=== PATIENT | female | born 2000 | race Caucasian/White ===

== ENCOUNTER 2021-01-04 14:04 | Outpatient (REF) | payer MEDICAID, SELFPAY ==
[2021-01-04 16:10] LABS: COVID-19 Test Negative (Negative)
== END 2021-01-04 14:05 | disposition home or self-care (01) ==
LOC: HO.LAB 14:04
PROVIDERS: Visit Provider Internal Medicine
DX: Z20.822 Contact with and (suspected) exposure to COVID-19 (principal)
CPT/HCPCS: 36415; 87635; C9803

== ENCOUNTER 2021-03-31 10:40 | Emergency (ER) | payer OTHER, MEDICAID, SELFPAY ==
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
[2021-03-31 10:50] VITALS: BP 132/77; PULSE 92; RESP 16; TEMP 35.9; O2SAT 97; BMI 36.8
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
== END 2021-03-31 12:42 | disposition home or self-care (01) ==
PROVIDERS: Emergency Provider Emergency Medicine
DX: S13.4XXA Sprain of ligaments of cervical spine, initial encounter (principal); S06.0X0A Concussion without loss of consciousness, initial encounter; V43.52XA Car driver injured in collision with other type car in traffic accident, initial encounter; Y93.9 Activity, unspecified; Y92.410 Unspecified street and highway as the place of occurrence of the external cause; Y99.9 Unspecified external cause status
CPT/HCPCS: 70450; 72125; 99283; 99284

== ENCOUNTER 2021-09-01 22:51 | Emergency (ER) | payer MEDICAID, SELFPAY ==
[2021-09-01 22:58] VITALS: BP 118/78; PULSE 105; RESP 18; TEMP 36.8; O2SAT 97; BMI 42.0
--- NOTE | 2021-09-01 23:18 | ED.HA ---
HPI - Headache General Chief Complaint: Headache <Vanna Moon NP - Last Filed: 09/01/21 23:37> Stated Complaint: migraines <Vanna Moon NP - Last Filed: 09/01/21 23:37> Source: patient <Vanna Moon NP - Last Filed: 09/01/21 23:37> Mode of arrival: ambulatory <Vanna Moon NP - Last Filed: 09/01/21 23:37> Limitations: no limitations <Vanna Moon NP - Last Filed: 09/01/21 23:37> History of Present Illness HPI Narrative: Patient presents with a headache after sneezing. Has a history of migraines. <Vanna Moon NP - Last Filed: 09/01/21 23:37> MD elicited complaint: headache <Vanna Moon NP - Last Filed: 09/01/21 23:37> Onset (ago): hour(s) <Vanna Moon NP - Last Filed: 09/01/21 23:37> Onset description: gradually <Vanna Moon NP - Last Filed: 09/01/21 23:37> Severity: mild <Vanna Moon NP - Last Filed: 09/01/21 23:37> Pain scale (0-10): 3 <Vanan Moon NP - Last Filed: 09/01/21 23:37> Quality & Timing: aching <Vanna Moon NP - Last Filed: 09/01/21 23:37> Exacerbating factors: other (Sneezing) <Vanna Moon NP - Last Filed: 09/01/21 23:37> Relieving factors: NSAIDs <Vanna Moon NP - Last Filed: 09/01/21 23:37> Associated symptoms: none <Vanna Moon NP - Last Filed: 09/01/21 23:37> Treatments prior to arrival: ibuprofen <Vanna Moon NP - Last Filed: 09/01/21 23:37> Related Data Home Medications: Previous Rx's Medication Instructions Recorded acetaminophen 500 mg tablet 1,000 mg PO QID PRN #14 tab 03/31/21 (Tylenol Extra Strength) cyclobenzaprine 10 mg tablet 10 mg PO Q8H #10 tab 03/31/21 [id number]-[id number]-ixniangq 1 cap PO Q8H PRN #14 cap 09/01/21 50 mg-300 mg-40 mg capsule (Fioricet) <Vanna Moon NP - Last Filed: 09/01/21 23:37> Allergies/Adverse Reactions: Allergies Allergy/AdvReac Type Severity Reaction Status Date / Time No Known Allergies Allergy Verified 09/01/21 22:58 <Vanna Moon NP - Last Filed: 09/01/21 23:37> Review of Systems Review of Systems: Constitutional: No Fever, No Chills ENT/Mouth: No Ear Pain, No Hoarseness, No sore throat Eyes: No Eye Pain, No Swelling, No Redness, No Foreign Body Cardiovascular: No Chest Pain, No SOB Respiratory: No Cough, No Dyspnea Gastrointestinal: No Nausea, No Vomiting, No Diarrhea, No abdominal Pain Genitourinary: No Dysuria, No Hematuria Musculoskeletal: No joint pain, No Myalgias, No Joint Swelling Skin: No Skin lacerations, No rash Neuro: No Weakness, No Numbness, No Paresthesias, No Loss of Consciousness, No Dizziness, positive Headache Psych: No Anxiety/Panic, No Depression Heme/Lymph: no easy bruising, no Lymphadenopathy Endocrine: No Polyuria, No Polydipsia <Vanna Moon NP - Last Filed: 09/01/21 23:37> Yes all other systems are reviewed and are negative <Vanna Moon NP - Last Filed: 09/01/21 23:37> [facility] Past Medical History Attestation statement: The following information was validated with the patient. <Vanna Moon NP - Last Filed: 09/01/21 23:37> Source: old records reviewed <Vanna Moon NP - Last Filed: 09/01/21 23:37> Medical History: Medical History Headache <Vanna Moon NP - Last Filed: 09/01/21 23:37> Social History Social History: Social History Advance Directives: No Advance Directives Information Provided: No Patient : No <Vanna Moon ELECTRICIAN LOCOMOTIVE - Last Filed: 09/01/21 23:37> Physical Exam Vital Signs: Vital Signs: Last Vital Signs Temp 98.3 F 09/01/21 22:58 Pulse 105 H 09/01/21 22:58 Resp 18 09/01/21 22:58 BP 118/78 09/01/21 22:58 Pulse Ox 97 09/01/21 22:58 BMI result Body Mass Index 42.0 <Vanna Moon ELECTRICIAN LOC[employer] - Last Filed: 09/01/21 23:37> Vital Signs: Last Vital Signs Temp 98.3 F 09/01/21 22:58 Pulse 105 H 09/01/21 22:58 Resp 18 09/01/21 22:58 BP 118/78 09/01/21 22:58 Pulse Ox 97 09/01/21 22:58 BMI result Body Mass Index 42.0 <Kevin Spencer MD - Last Filed: 09/02/21 00:17> Appearance: Alert. Oriented X3. No acute distress. Head: Normal external exam. Normocephalic. Atraumatic. No Hicks signs noted. No raccoon eyes noted Eyes: PERRLA. EOMI. Conjunctiva and sclera normal. Eyelids normal. ENT: TM's Normal. Pharynx normal. Uvula midline. Moist mucous membranes. No trismus noted. No drooling noted. No muffled voice noted. Neck: Normal inspection. Neck supple. No adenopathy. No meningeal signs. No neck mass noted. No nuchal rigidity. CVS: Normal heart rate and rhythm. Heart sound normal. No murmurs noted. Pulses equal to all extremities. Respiratory: No respiratory distress. Painless inspiration. Breath sounds normal. No wheezes/rales/rhonchi noted. Chest nontender. No accessory muscle usage noted or decreased air movement noted. Abdomen: Soft and nontender. Bowel sounds normal in all 4 quadrants. No distention noted. No organomegaly noted. No visible injury noted. Back: No CVA tenderness. Full range of motion noted. Skin: Skin warm and dry. Normal skin color. Normal skin turgor. No rashes/lesions/lacerations noted. Extremities: No lower extremity edema. Extremities exhibit normal range of motion. Extremities nontender. Neuro: cranial nerves 2-12 intact, no focal neural deficits, strength 5/5 to all extremities, No motor deficit. No sensory deficit. <Vanna Moon NP - Last Filed: 09/01/21 23:37> Course Course Course Narrative: 20-year-old female presents with headache after sneezing. States that her headache is almost gone since taking ibuprofen. She does have a history of migraines, and does not have anymore Fioricet. Patient is afebrile, appears nontoxic, negative Romberg, gait well-balanced well coordinated. Plan of care is to refill her Fioricet primary care physician. CT scan from 03/31/2021 reviewed, negative for acute findings at that time. Patient is neurovascularly intact, no need to repeat CT scan at this time. Patient verbalized understanding of and agrees to plan of care discharge home. <Vanna Moon NP - Last Filed: 09/01/21 23:37> MDM - Headache Differential Diagnosis Differential diagnosis: Likely migraine and headache <Vanna Moon NP - Last Filed: 09/01/21 23:37> Medical Records Attestation: I reviewed the patient's medical records. <Vanna Moon NP - Last Filed: 09/01/21 23:37> Discharge Plan Discharge Clinical Impression: Headache, Migraine <Vanna Moon NP - Last Filed: 09/01/21 23:37> Patient Disposition: Home, Self-Care <Vanna Moon NP - Last Filed: 09/01/21 23:37> Instructions: Acute Headache (ED), Cold Symptoms (ED) <Vanna Moon NP - Last Filed: 09/01/21 23:37> Additional Instructions: You were evaluated for headache from sneezing. I gave you a prescription for Fioricet. Please consider following up with ENT if symptoms persist. Please follow-up with your primary care physician. Thank you for choosing this emergency department for evaluation. Please follow-up with primary care physician as needed. Return to the emergency department for any new, concerning, or worsening symptoms. <DARLEEN Lubin Last Filed: 09/01/21 23:37> Prescriptions: New [id number]-msblikmukixcx-yifo [Fioricet] 50-300-40 mg capsule 1 cap PO Q8H PRN (Reason: Migraine) Qty: 14 RF: 0 No Action cyclobenzaprine 10 mg tablet 10 mg PO Q8H Qty: 10 RF: 0 acetaminophen [Tylenol Extra Strength] 500 mg tablet 1,000 mg PO QID PRN (Reason: fever or pain) Qty: 14 RF: 0 <Vanna Moon NP - Last Filed: 09/01/21 23:37> Interventions: ED Discharge Assessment Last Done: 09/01/21 23:33 <Vanna Moon NP - Last Filed: 09/01/21 23:37> Discharge Date/Time: 09/01/21 23:34 <Vanna Moon NP - Last Filed: 09/01/21 23:37>
== END 2021-09-01 23:34 | disposition home or self-care (01) ==
LOC: HO.ED 23:29
PROVIDERS: Emergency Provider Internal Medicine
DX: G43.009 Migraine without aura, not intractable, without status migrainosus (principal)
CPT/HCPCS: 99283

== ENCOUNTER 2022-08-22 15:23 | Emergency (ER) | payer MEDICAID, SELFPAY ==
--- NOTE | ~2022-08-22 | US_ITS ---
EXAMINATION: US OBSTETRICAL ULTRASOUND CLINICAL INFORMATION: Pain with question of ovarian torsion, positive urine test COMPARISON: None. LMP: 07/19/2022. Gestational age by maternal dates is 4 weeks 6 days. Estimated date of delivery by maternal dates is 04/25/2023. TECHNIQUE: Transabdominal ultrasound was performed. The patient declined endovaginal scanning. FINDINGS: Normal anteverted uterus is present. A gestational sac is not seen within the endometrial canal which appears normal. There is a small area adjacent to the endometrium that measures 7 x 8 x 6 mm of questionable significance. Both ovaries appear unremarkable with normal flow. The right measures 3.4 x 3.4 x 2.9 cm and contains a possible corpus luteum cyst measuring 2.0 cm. Left ovary measures 2.3 x 2.2 x 1.6 cm and appears normal. No free fluid is present in the cul-de-sac. No maternal pelvic ascites. US/US OB <= 14 weeks fetus IMPRESSION: A gestational sac in the endometrial canal is not seen. Tiny hypodensity seen adjacent to the endometrium as described above. Recommend follow-up ultrasound in one week and correlation with hCG levels.
--- NOTE | ~2022-08-22 | US_ITS ---
EXAMINATION: US OBSTETRICAL ULTRASOUND CLINICAL INFORMATION: Pain with question of ovarian torsion, positive urine test COMPARISON: None. LMP: 07/19/2022. Gestational age by maternal dates is 4 weeks 6 days. Estimated date of delivery by maternal dates is 04/25/2023. TECHNIQUE: Transabdominal ultrasound was performed. The patient declined endovaginal scanning. FINDINGS: Normal anteverted uterus is present. A gestational sac is not seen within the endometrial canal which appears normal. There is a small area adjacent to the endometrium that measures 7 x 8 x 6 mm of questionable significance. Both ovaries appear unremarkable with normal flow. The right measures 3.4 x 3.4 x 2.9 cm and contains a possible corpus luteum cyst measuring 2.0 cm. Left ovary measures 2.3 x 2.2 x 1.6 cm and appears normal. No free fluid is present in the cul-de-sac. No maternal pelvic ascites. US/US pelvic ovarian doppler IMPRESSION: A gestational sac in the endometrial canal is not seen. Tiny hypodensity seen adjacent to the endometrium as described above. Recommend follow-up ultrasound in one week and correlation with hCG levels.
[2022-08-22 15:57] VITALS: BP 105/61; PULSE 96; RESP 16; TEMP 36.4; O2SAT 96; BMI 40.0
--- NOTE | 2022-08-22 15:57 | ED_ITS ---
HPI - General Adult General Chief complaint: Abdominal Pain <TORSTEN Mcclendon - Last Filed: 08/22/22 16:00> Stated complaint: , having abdominal pain <TORSTEN Mcclendon - Last Filed: 08/22/22 16:00> Time Seen by Provider: 08/23/22 00:01 <TORSTEN Mcclendon - Last Filed: 08/22/22 16:00> Source: patient <Roz Chawla MD - Last Filed: 08/23/22 00:49> Mode of arrival: ambulatory <Roz Chawla MD - Last Filed: 08/23/22 00:49> Limitations: no limitations <Roz Chawla MD - Last Filed: 08/23/22 00:49> History of Present Illness HPI narrative: Patient comes to the emergency room complaining of 1 day of vaginal pinkish discharge, suprapubic discomfort. Patient is a at approximately 8 weeks and 3 days of gestational age. Patient's last menstrual period is 06/25/2022. Patient had a home test which was positive. Patient denies any nausea vomiting or diarrhea. 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 <Roz Chawla MD - Last Filed: 08/23/22 00:49> Related Data Home medications: Previous Rx's Medication Instructions Recorded acetaminophen 500 mg tablet 1,000 mg PO QID PRN fever or pain 03/31/21 (Tylenol Extra Strength) #14 tabs cyclobenzaprine 10 mg tablet 10 mg PO Q8H Muscle spasm #10 tabs 03/31/21 evyrxvnxcd-yfkpmtiequfll-rkyhxmkp 1 cap PO Q8H PRN Migraine #14 caps 09/01/21 50 mg-300 mg-40 mg capsule (Fioricet) <TORSTEN Mcclendon - Last Filed: 08/22/22 16:00> Allergies/adverse reactions: Allergies Allergy/AdvReac Type Severity Reaction Status Date / Time No Known Allergies Allergy Verified 08/22/22 16:02 <TORSTEN Mcclendon - Last Filed: 08/22/22 16:00> Review of Systems Review of Systems: Constitutional : No Weight loss, No Fever, No Chills, No Night Sweats, No Fatigue, No Malaise ENT/Mouth : No Hearing loss, No Ear Pain, No Nasal Congestion, No Sinus Pain, No Hoarseness, No sore throat, No Rhinorrhea, No Swallowing Difficulty Eyes: No Eye Pain, No Swelling, No Redness, No Foreign Body, No Discharge, No Vision Changes Cardiovascular : No Chest Pain, No SOB, No Dyspnea on Exertion, No Orthopnea, No Edema, No Palpitations Respiratory : No Cough, No Sputum, No Wheezing, No Smoke Exposure, No Dyspnea Gastrointestinal : No Nausea, No Vomiting, No Diarrhea, No Constipation, mild suprapubic intermittent cramping, No Hematochezia, No Melena Genitourinary : , complaining of vaginal pinkish/bloody discharge, No Dysuria, No Urinary Frequency, No Hematuria, No Urinary Incontinence, No Urgency, No Flank Pain, No Urinary Flow Changes, No Hesitancy Musculoskeletal : No joint pain, No Myalgias, No Joint Swelling Skin : No Skin Lesions, No rash Neuro : No Weakness, No Numbness, No Paresthesias, No Loss of Consciousness, No Dizziness, No Headache Psych : No Anxiety/Panic, No Depression, No SI/HI/AH/VH, No Social Issues, Heme/Lymph: No Bruising, No Bleeding,No Lymphadenopathy Endocrine : No Polyuria, No Polydipsia, No Temperature Intolerance <Roz Chawla MD - Last Filed: 08/23/22 00:49> [facility] [place] Past Medical History Medical History: Medical History Headache <TORSTEN Mcclendon - Last Filed: 08/22/22 16:00> Social History Social History: Social History Advance Directives: No Advance Directives Information Provided: Yes <TORSTEN Mcclendon - Last Filed: 08/22/22 16:00> Physical Exam ED Vital Signs: Vital Signs - 24 hr 08/22/22 15:57 08/22/22 21:18 Temperature 97.5 F Pulse Rate 96 85 Respiratory Rate 16 20 Blood Pressure 105/61 109/53 L Pulse Oximetry 96 99 Oxygen Delivery Method Room Air Room Air BMI result Body Mass Index 40.0 <TORSTEN Mcclendon - Last Filed: 08/22/22 16:00> Vital Signs - 24 hr 08/22/22 15:57 08/22/22 21:18 Temperature 97.5 F Pulse Rate 96 85 Respiratory Rate 16 20 Blood Pressure 105/61 109/53 L Pulse Oximetry 96 99 Oxygen Delivery Method Room Air Room Air BMI result Body Mass Index 40.0 <Roz Chawla MD - Last Filed: 08/23/22 00:49> Const Other: Appearance: Alert. Oriented X3. No acute distress. Eyes: Pupils equal, round and reactive to light. ENT: Pharynx normal. Neck: Normal inspection. Neck supple. No lymph nodes noted. No crepitus CVS: Normal heart rate and rhythm. Pulses normal. Normal S1 and S2 Respiratory: No respiratory distress. Breath sounds normal. No Wheezing. No rales Abdomen: Soft and nontender. No rigidity. No distention. : Normal appearing cervix, no blood present or brownish discharge Skin: Skin warm and dry. Normal skin color. Normal skin turgor. Extremities: No lower extremity edema. No Lacerations. No Rash Neuro: Oriented X 3. No motor deficit. No sensory deficit. Moving all extremities. No slurred speech. CN 2 through 12 grossly intact Psych: calm, cooperative, normal affect <Roz Chawla MD - Last Filed: 08/23/22 00:49> Course Course Course Narrative: Patient's ultrasound does not show gestational sac. Patient's hCG is 2727. It is possible that this may be an early miscarriage versus a very early . Patient will need repeat hCG and ultrasound in approximately 1 week. Patient's blood type is B-positive, RhoGAM not indicated. Patient was given a lab form to get redrawn beta hCG in 48 hours, patient instructed to follow-up with her primary care physician. In case she cannot be seen, patient was given the phone number of Dr. Malik <Roz Chawla MD - Last Filed: 08/23/22 00:49> Reevaluation(s) Reevaluation #1: 21 year old female LMP 06/25/2022 presents w/ 8/10 lower abdominal cramping, vaginal bleeding since this morning. Blood is a light red, without clots only present when she wipes. Found out she was recently not followed by OBGYN Sep 02 scheduled to see [facility]. Not taking vitamins. Denies headache, vision changes, dizziness, nausea, vomiting, chest pain, shortness of breath, changes in bowel habits. Natural PE benign Plan- us, basic labs. <TORSTEN Mcclendon - Last Filed: 08/22/22 16:00> Time: 16:00 <TORSTEN Mcclendon - Last Filed: 08/22/22 16:00> Medications Administered Discontinued Medications Generic Name Dose Route Start Last Admin Trade Name Freq PRN Reason Stop Dose Admin Acetaminophen 975 mg 08/23/22 00:08 08/23/22 00:26 Acetaminophen 325 Mg Tablet PO 08/23/22 00:09 975 mg ONCE ONE Administration <TORSTEN Mcclendon - Last Filed: 08/22/22 16:00> Medications Administered Discontinued Medications Generic Name Dose Route Start Last Admin Trade Name Freq PRN Reason Stop Dose Admin Acetaminophen 975 mg 08/23/22 00:08 08/23/22 00:26 Acetaminophen 325 Mg Tablet PO 08/23/22 00:09 975 mg ONCE ONE Administration <Roz Chawla MD - Last Filed: 08/23/22 00:49> Medical Decision Making Lab Data Result diagrams: : 08/22/22 21:24 08/22/22 21:24 <TORSTEN Mcclendon - Last Filed: 08/22/22 16:00> Labs: Lab Results 08/22/22 08/22/22 08/22/22 Range/Units 16:21 16:22 21:24 WBC 10.6 (4.8-10.8) X10*3/uL RBC 4.78 (4.20-5.50) X10*6/uL Hgb 13.9 (12.0-16.0) g/dl Hct 40.7 (37.0-47.0) % MCV 85.1 (80.0-98.0) fL MCH 29.1 (27.0-33.0) pg MCHC 34.2 (31.0-35.0) g/dl RDW 12.6 (11.0-16.0) % Plt Count 359 (160-400) X10*3/uL MPV 9.9 (9.4-12.3) fL Immature Gran % (Auto) 1.0 H (0.0-0.4) % Neut % (Auto) 69.7 (45-73) % Lymph % (Auto) 21.1 (20-40) % Wilkinson % (Auto) 6.4 (2-11) % Eos % (Auto) 1.3 (0-4) % Baso % (Auto) 0.5 (0-2) % Lymph # (Auto) 2.2 (1.2-4.9) X10*3/uL Wilkinson # (Auto) 0.7 (0.1-1.2) X10*3/uL Eos # (Auto) 0.1 (0.0-0.4) X10*3/uL Baso # (Auto) 0.1 (0.0-0.2) X10*3/uL Abs Immat Gran (auto) 0.11 H (0.00-0.03) X10*3/uL Absolute Neuts (auto) 7.4 (2.0-8.3) x10*3/uL Absolute Nucleated RBC 0.000 (0.0-0.012) X10*3/uL Nucleated RBC % (auto) 0.0 (0.0-0.2) /100WBC Sodium (135-145) mmol/L Potassium (3.3-5.1) mmol/L Chloride (96-108) mmol/L Carbon Dioxide (22-29) mmol/L Anion Gap (12-20) BUN (9-16) mg/dL Creatinine (0.5-1.4) mg/dL Estim Creat Clear Calc Estimated GFR Random Glucose (60-115) mg/dL Calcium (8.4-10.2) mg/dL Total Bilirubin (0.0-1.0) mg/dL AST (5-31) U/L ALT (0-31) U/L Alkaline Phosphatase (39-117) U/L Total Protein (6.5-8.0) g/dL Albumin (3.5-5.0) g/dL Beta HCG, Quant mIU/mL Urine Color Yellow Urine Appearance Clear Urine pH 5.5 (5.0-9.0) Ur Specific [place] >= 1.030 H (1.005-1.025) Urine Protein 100 (2+) H (Neg-Trace) mg/dL Urine Glucose (UA) Negative (Negative) mg/dL Urine Ketones Trace (Negative) mg/dL Urine Blood Negative (Negative) Urine Nitrite Negative (Negative) Ur Leukocyte Esterase Negative (Negative) Urine RBC 0-2 (0-2) /HPF Urine WBC 0-5 (0-5) /HPF Ur Squamous Epith Cells 3-5 (0-2) /HPF Urine Bacteria None Seen (None Seen) Hyaline Casts 0-2 (0-2) /LPF Urine Test POSITIVE H (NEGATIVE) Blood Type 08/22/22 08/22/22 08/22/22 Range/Units 21:24 21:24 21:24 WBC (4.8-10.8) X10*3/uL RBC (4.20-5.50) X10*6/uL Hgb (12.0-16.0) g/dl Hct (37.0-47.0) % MCV (80.0-98.0) fL MCH (27.0-33.0) pg MCHC (31.0-35.0) g/dl RDW (11.0-16.0) % Plt Count (160-400) X10*3/uL MPV (9.4-12.3) fL Immature Gran % (Auto) (0.0-0.4) % Neut % (Auto) (45-73) % Lymph % (Auto) (20-40) % Wilkinson % (Auto) (2-11) % Eos % (Auto) (0-4) % Baso % (Auto) (0-2) % Lymph # (Auto) (1.2-4.9) X10*3/uL Wilkinson # (Auto) (0.1-1.2) X10*3/uL Eos # (Auto) (0.0-0.4) X10*3/uL Baso # (Auto) (0.0-0.2) X10*3/uL Abs Immat Gran (auto) (0.00-0.03) X10*3/uL Absolute Neuts (auto) (2.0-8.3) x10*3/uL Absolute Nucleated RBC (0.0-0.012) X10*3/uL Nucleated RBC % (auto) (0.0-0.2) /100WBC Sodium 137 (135-145) mmol/L Potassium 4.0 (3.3-5.1) mmol/L Chloride 104 (96-108) mmol/L Carbon Dioxide 23 (22-29) mmol/L Anion Gap 14 (12-20) BUN 10 (9-16) mg/dL Creatinine 0.65 (0.5-1.4) mg/dL Estim Creat Clear Calc 157.8 Estimated GFR > 60 Random Glucose 92 (60-115) mg/dL Calcium 9.6 (8.4-10.2) mg/dL Total Bilirubin 0.3 (0.0-1.0) mg/dL AST 22 (5-31) U/L ALT 27 (0-31) U/L Alkaline Phosphatase 97 (39-117) U/L Total Protein 7.6 (6.5-8.0) g/dL Albumin 4.0 (3.5-5.0) g/dL Beta HCG, Quant 2727 mIU/mL Urine Color Urine Appearance Urine pH (5.0-9.0) Ur Specific [place] (1.005-1.025) Urine Protein (Neg-Trace) mg/dL Urine Glucose (UA) (Negative) mg/dL Urine Ketones (Negative) mg/dL Urine Blood (Negative) Urine Nitrite (Negative) Ur Leukocyte Esterase (Negative) Urine RBC (0-2) /HPF Urine WBC (0-5) /HPF Ur Squamous Epith Cells (0-2) /HPF Urine Bacteria (None Seen) Hyaline Casts (0-2) /LPF Urine Test (NEGATIVE) Blood Type B Positive <TORSTEN Mcclendon - Last Filed: 08/22/22 16:00> Lab Results 08/22/22 08/22/22 08/22/22 Range/Units 16:21 16:22 21:24 WBC 10.6 (4.8-10.8) X10*3/uL RBC 4.78 (4.20-5.50) X10*6/uL Hgb 13.9 (12.0-16.0) g/dl Hct 40.7 (37.0-47.0) % MCV 85.1 (80.0-98.0) fL MCH 29.1 (27.0-33.0) pg MCHC 34.2 (31.0-35.0) g/dl RDW 12.6 (11.0-16.0) % Plt Count 359 (160-400) X10*3/uL MPV 9.9 (9.4-12.3) fL Immature Gran % (Auto) 1.0 H (0.0-0.4) % Neut % (Auto) 69.7 (45-73) % Lymph % (Auto) 21.1 (20-40) % Wilkinson % (Auto) 6.4 (2-11) % Eos % (Auto) 1.3 (0-4) % Baso % (Auto) 0.5 (0-2) % Lymph # (Auto) 2.2 (1.2-4.9) X10*3/uL Wilkinson # (Auto) 0.7 (0.1-1.2) X10*3/uL Eos # (Auto) 0.1 (0.0-0.4) X10*3/uL Baso # (Auto) 0.1 (0.0-0.2) X10*3/uL Abs Immat Gran (auto) 0.11 H (0.00-0.03) X10*3/uL Absolute Neuts (auto) 7.4 (2.0-8.3) x10*3/uL Absolute Nucleated RBC 0.000 (0.0-0.012) X10*3/uL Nucleated RBC % (auto) 0.0 (0.0-0.2) /100WBC Sodium (135-145) mmol/L Potassium (3.3-5.1) mmol/L Chloride (96-108) mmol/L Carbon Dioxide (22-29) mmol/L Anion Gap (12-20) BUN (9-16) mg/dL Creatinine (0.5-1.4) mg/dL Estim Creat Clear Calc Estimated GFR Random Glucose (60-115) mg/dL Calcium (8.4-10.2) mg/dL Total Bilirubin (0.0-1.0) mg/dL AST (5-31) U/L ALT (0-31) U/L Alkaline Phosphatase (39-117) U/L Total Protein (6.5-8.0) g/dL Albumin (3.5-5.0) g/dL Beta HCG, Quant mIU/mL Urine Color Yellow Urine Appearance Clear Urine pH 5.5 (5.0-9.0) Ur Specific [place] >= 1.030 H (1.005-1.025) Urine Protein 100 (2+) H (Neg-Trace) mg/dL Urine Glucose (UA) Negative (Negative) mg/dL Urine Ketones Trace (Negative) mg/dL Urine Blood Negative (Negative) Urine Nitrite Negative (Negative) Ur Leukocyte Esterase Negative (Negative) Urine RBC 0-2 (0-2) /HPF Urine WBC 0-5 (0-5) /HPF Ur Squamous Epith Cells 3-5 (0-2) /HPF Urine Bacteria None Seen (None Seen) Hyaline Casts 0-2 (0-2) /LPF Urine Test POSITIVE H (NEGATIVE) Blood Type 08/22/22 08/22/22 08/22/22 Range/Units 21:24 21:24 21:24 WBC (4.8-10.8) X10*3/uL RBC (4.20-5.50) X10*6/uL Hgb (12.0-16.0) g/dl Hct (37.0-47.0) % MCV (80.0-98.0) fL MCH (27.0-33.0) pg MCHC (31.0-35.0) g/dl RDW (11.0-16.0) % Plt Count (160-400) X10*3/uL MPV (9.4-12.3) fL Immature Gran % (Auto) (0.0-0.4) % Neut % (Auto) (45-73) % Lymph % (Auto) (20-40) % Wilkinson % (Auto) (2-11) % Eos % (Auto) (0-4) % Baso % (Auto) (0-2) % Lymph # (Auto) (1.2-4.9) X10*3/uL Wilkinson # (Auto) (0.1-1.2) X10*3/uL Eos # (Auto) (0.0-0.4) X10*3/uL Baso # (Auto) (0.0-0.2) X10*3/uL Abs Immat Gran (auto) (0.00-0.03) X10*3/uL Absolute Neuts (auto) (2.0-8.3) x10*3/uL Absolute Nucleated RBC (0.0-0.012) X10*3/uL Nucleated RBC % (auto) (0.0-0.2) /100WBC Sodium 137 (135-145) mmol/L Potassium 4.0 (3.3-5.1) mmol/L Chloride 104 (96-108) mmol/L Carbon Dioxide 23 (22-29) mmol/L Anion Gap 14 (12-20) BUN 10 (9-16) mg/dL Creatinine 0.65 (0.5-1.4) mg/dL Estim Creat Clear Calc 157.8 Estimated GFR > 60 Random Glucose 92 (60-115) mg/dL Calcium 9.6 (8.4-10.2) mg/dL Total Bilirubin 0.3 (0.0-1.0) mg/dL AST 22 (5-31) U/L ALT 27 (0-31) U/L Alkaline Phosphatase 97 (39-117) U/L Total Protein 7.6 (6.5-8.0) g/dL Albumin 4.0 (3.5-5.0) g/dL Beta HCG, Quant 2727 mIU/mL Urine Color Urine Appearance Urine pH (5.0-9.0) Ur Specific [place] (1.005-1.025) Urine Protein (Neg-Trace) mg/dL Urine Glucose (UA) (Negative) mg/dL Urine Ketones (Negative) mg/dL Urine Blood (Negative) Urine Nitrite (Negative) Ur Leukocyte Esterase (Negative) Urine RBC (0-2) /HPF Urine WBC (0-5) /HPF Ur Squamous Epith Cells (0-2) /HPF Urine Bacteria (None Seen) Hyaline Casts (0-2) /LPF Urine Test (NEGATIVE) Blood Type B Positive <Roz Chawla MD - Last Filed: 08/23/22 00:49> Discharge Plan Discharge Clinical Impression: Vaginal bleeding during <TORSTEN Mcclendon - Last Filed: 08/22/22 16:00> Patient Disposition: Home, Self-Care <TORSTEN Mcclendon - Last Filed: 08/22/22 16:00> Instructions: Threatened Miscarriage (ED) <TORSTEN Mcclendon - Last Filed: 08/22/22 16:00> Additional Instructions: Please return on August 26 in the morning for lab report. Follow up with her primary care physician, OBGYN. If you cannot be seen within 48 hours with your OB Gyne, please schedule an appointment with Dr. Malik <TORSTEN Mcclendon - Last Filed: 08/22/22 16:00> Prescriptions: No Action cyclobenzaprine 10 mg tablet 10 mg PO Q8H Qty: 10 0RF acetaminophen [Tylenol Extra Strength] 500 mg tablet 1,000 mg PO QID PRN (Reason: fever or pain) Qty: 14 0RF [id number]-[id number] [Fioricet] 50-300-40 mg capsule 1 cap PO Q8H PRN (Reason: Migraine) Qty: 14 0RF <TORSTEN Mcclendon - Last Filed: 08/22/22 16:00> Referrals: Jimmy Malik MD [Physician] - 2 days <TORSTEN Mcclendon - Last Filed: 08/22/22 16:00>
[2022-08-22 16:36] LABS: Appearance Urine Clear; Color Urine Yellow; Glucose Urine UA Negative (Negative); Leukocyte Esterase Urine Negative (Negative); Nitrite Urine Negative (Negative); PH 5.5 (5.0-9.0); Specific Gravity - Urine >= 1.030 (1.005-1.025); UMIC TRIGGER UACC YES; Urine Blood Negative (Negative); Urine Ketones Trace mg/dL (Negative); Urine Protein 100 (2+) mg/dL (Neg-Trace)
[2022-08-22 16:37] LABS: UPreg QC Valid YES; Urine Pregnancy POSITIVE (NEGATIVE)
[2022-08-22 16:53] LABS: Bacteria Urine None Seen (None Seen); Hyaline Casts Urine 0-2 /LPF (0-2); RBC Urine 0-2 /HPF (0-2); WBC Urine 0-5 /HPF (0-5)
[2022-08-22 21:18] VITALS: BP 109/53; PULSE 85; RESP 20; O2SAT 99
[2022-08-22 21:28] LABS: MANUAL DIFF FLAG NO
[2022-08-22 21:31] LABS: Basophils Absolute Auto 0.1 X10*3/uL (0.0-0.2); Basophils Percent Auto 0.5 % (0-2); Eosinophils Absolute Auto 0.1 X10*3/uL (0.0-0.4); Eosinophils Percent Auto 1.3 % (0-4); Hematocrit 40.7 % (37.0-47.0); Hemoglobin 13.9 g/dl (12.0-16.0); Imm Gran Abs Auto 0.11 X10*3/uL (0.00-0.03); Lymphocytes Absolute Auto 2.2 X10*3/uL (1.2-4.9); Lymphocytes Percent Auto 21.1 % (20-40); Mean Corpuscular HGB Conc 34.2 g/dl (31.0-35.0); Mean Corpuscular Hemoglobin 29.1 pg (27.0-33.0); Mean Corpuscular Volume 85.1 fL (80.0-98.0); Mean Platelet Volume 9.9 fL (9.4-12.3); Monocytes Absolute Auto 0.7 X10*3/uL (0.1-1.2); Monocytes Percent Auto 6.4 % (2-11); Neutrophils Absolute Auto 7.4 x10*3/uL (2.0-8.3); Neutrophils Percent Auto 69.7 % (45-73); Platelet Count 359 X10*3/uL (160-400); Red Blood Count 4.78 X10*6/uL (4.20-5.50); Red Cell Distribution Width 12.6 % (11.0-16.0); White Blood Count 10.6 X10*3/uL (4.8-10.8)
[2022-08-22 21:49] LABS: Alanine Aminotransferase 27 U/L (0-31); Alkaline Phosphatase 97 U/L (39-117); Anion Gap 14 (12-20); Aspartate Amino Transferase 22 U/L (5-31); Bilirubin Total 0.3 mg/dL (0.0-1.0); Blood Urea Nitrogen 10 mg/dL (9-16); Calcium 9.6 mg/dL (8.4-10.2); Carbon Dioxide 23 mmol/L (22-29); Chloride 104 mmol/L (96-108); Creatinine Clr Calc Pharmacy 157.8; Estimated Glomerular Filt Rate > 60; Glucose Random 92 mg/dL (60-115); Sodium 137 mmol/L (135-145); Total Protein 7.6 g/dL (6.5-8.0)
[2022-08-22 21:51] LABS: HCG Quantitative 2727 mIU/mL
[2022-08-23] MEDS: Acetaminophen 325 MG TABLET 975 MG PO (00:26)
== END 2022-08-23 01:02 | disposition home or self-care (01) ==
PROVIDERS: Physician Assistant; Emergency Provider Emergency Medicine
DX: O26.91 Pregnancy related conditions, unspecified, first trimester (principal); O20.9 Hemorrhage in early pregnancy, unspecified; Z3A.08 8 weeks gestation of pregnancy; Z79.899 Other long term (current) drug therapy
CPT/HCPCS: 36415; 76801; 80053; 81001; 81025; 84702; 85025; 86900; 86901; 93975; 99283; 99284